=== PATIENT | male | born 1980 | race Caucasian/White ===

== ENCOUNTER 2023-12-18 10:39 | Day surgery (SDC) | payer OTHER ==
[2023-12-18 13:17] LABS: EPI CELLS 24 /uL (0-25.1); HYALINE CASTS 2 /uL (0-3.1); URINE APPEARANCE CLEAR; URINE BACTERIA 24 /uL (0-1359); URINE BILIRUBIN NEGATIVE (NEGATIVE); URINE COLOR YELLOW; URINE GLUCOSE (UA) NEGATIVE (NEGATIVE); URINE KETONE 3+ (NEGATIVE); URINE LEUK ESTERASE NEGATIVE (NEGATIVE); URINE NITRITE NEGATIVE (NEGATIVE); URINE PROTEIN 1+ (NEGATIVE); URINE UROBILINOGEN 0.2 mg/dL (0.2-1.0)
[2023-12-18] MEDS: ONDANSETRON 4 MG/2 ML VIAL IVPUSH ONE (13:59)
[2023-12-18] MEDS: LACTATED RINGERS SOLUTION 1000 ML INFUS.BAG IV ONE (13:59)
[2023-12-18] MEDS: ACETAMINOPHEN 1000 MG/100 ML BAG IVPB ONE (13:59)
[2023-12-18 14:05] LABS: URINE RBC 55.9 /uL (0-23.9); URINE WBC 143.1 /uL (0-25.8); YEAST NONE SEEN (NEGATIVE)
[2023-12-18 14:09] LABS: BASO % 0.5 % (0-2.0); HEMOGLOBIN 14.8 GM/dL (11.7-16.9); LYMPH % 16.1 % (8-40); MCH 28.2 pg (25.7-33.7); MCHC 33.6 g/dl (32.0-35.9); MEAN PLT VOLUME 7.8 fl (7.5-11.1); MONO % 7.1 % (3.8-10.2); NEUT % 76.3 % (42.8-82.8); PLATELET COUNT 240 10^3/uL (134-434); RBC 5.24 M/mm3 (4.00-5.60); RDW 13.3 % (11.9-15.9); WHITE BLOOD COUNT 13.6 K/mm3 (4.0-10.0)
[2023-12-18 14:10] LABS: INR 1.17 (0.83-1.09); PROTHROMBIN TIME (PATIENT) 13.5 SEC (9.7-13.0)
[2023-12-18 14:13] LABS: ACTIVATED PTT 38.6 SECONDS (25.2-36.5)
[2023-12-18 14:31] LABS: POTASSIUM 4.1 mmol/L (3.5-5.1)
[2023-12-18 14:36] LABS: CALCIUM 9.3 mg/dL (8.5-10.1); MAGNESIUM 2.6 mg/dL (1.8-2.4)
[2023-12-18 14:40] LABS: CREATININE 0.7 mg/dL (0.55-1.3)
[2023-12-18 14:41] LABS: BILIRUBIN,TOTAL 0.3 mg/dL (0.2-1); TOT PROT 7.2 g/dl (6.4-8.2)
[2023-12-18] MEDS ORDERED: morphine SULFATE 4 MG/ML VIAL ONE ×2 (14:51→17:23)
[2023-12-18] MEDS: morphine CARPU-JECT 4 MG/1 ML DISP.SYRIN IVPUSH ONE ×2 (14:58→17:44)
[2023-12-18 17:13] LABS: BLOOD UREA NITROGEN 22.6 mg/dL (7-18); CALCIUM 8.6 mg/dL (8.5-10.1); MAGNESIUM 2.5 mg/dL (1.8-2.4)
[2023-12-18 17:17] LABS: CREATININE 0.6 mg/dL (0.55-1.3)
[2023-12-18 17:23] LABS: POTASSIUM 3.5 mmol/L (3.5-5.1)
[2023-12-18] MEDS ORDERED: PIPERACILLIN/TAZOB 4.5 GM 4.5 GM/100 ML BAG IVPB ONE (17:23)
[2023-12-18] MEDS: PIPERACILLIN/TAZOB 4.5 GM 4.5 GM in DEXTROSE 5%-WATER 100 ML IVPB ONE (17:45)
[2023-12-18] MEDS ORDERED: CYCLOBENZAPRINE HCL 10 MG TABLET (FP) PO PRN (18:23)
[2023-12-18] MEDS: LACTATED RINGERS SOLUTION 1,000 ML/1,000 ML INFUS.BAG IV SCH (18:28)
[2023-12-18] MEDS: GABAPENTIN 300 MG CAPSULE PO SCH (21:45)
[2023-12-18] MEDS: morphine SULFATE 4 MG/ML VIAL IVPUSH PRN (21:46)
[2023-12-18 23:14] VITALS: BMI 23.3
[2023-12-18] MEDS: MELATONIN 5 MG TABLETS PO ONE (23:54)
[2023-12-19] MEDS: PIPERACILLIN/TAZOB 4.5 GM 4.5 GM in DEXTROSE 5%-WATER 100 ML IVPB SCH ×2 (02:28→14:19)
[2023-12-19] MEDS ORDERED: HEPARIN NA (PORCINE) 5,000 UNITS/ML 1ML VIAL ONE (08:09)
[2023-12-19] MEDS ORDERED: BUPIVACAINE HCL/PF 0.25% (2.5MG/ML) 10 ML VIAL ONE (08:09)
[2023-12-19] MEDS: BUPIVACAINE HCL/PF 0.25% (2.5MG/ML) 10 ML VIAL IJ ONE ×2 (08:18→09:13)
[2023-12-19] MEDS: cefOXitin SODIUM 1 GM VIAL (RESTRICTED TO ID) IVPB ONE (08:18)
[2023-12-19 08:21] LABS: HEMATOCRIT 37.1 % (35.4-49); MCH 29.2 pg (25.7-33.7); MCHC 35.1 g/dl (32.0-35.9); MEAN CELL VOLUME 83.4 fl (80-96); MEAN PLT VOLUME 7.8 fl (7.5-11.1); PLATELET COUNT 214 10^3/uL (134-434); RBC 4.45 M/mm3 (4.00-5.60); RDW 13.4 % (11.9-15.9); WHITE BLOOD COUNT 9.6 K/mm3 (4.0-10.0)
[2023-12-19 08:31] LABS: INR 1.22 (0.83-1.09); PROTHROMBIN TIME (PATIENT) 14.1 SEC (9.7-13.0)
[2023-12-19] MEDS ORDERED: SUCCINYLCHOLINE CHLORIDE 200 MG/10 ML SYRINGE ONE (08:43)
[2023-12-19] MEDS ORDERED: ROCURONIUM BROMIDE 50 MG/5 ML SYRINGE ONE (08:43)
[2023-12-19] MEDS ORDERED: MIDAZOLAM HCL 2 MG/2 ML SINGLE DOSE VIAL ONE (08:43)
[2023-12-19] MEDS ORDERED: PROPOFOL 40 ML ONE (08:43)
[2023-12-19] MEDS ORDERED: FENTANYL CITRATE/PF 50 MCG/ML VIAL ONE ×6 (08:43→10:44)
[2023-12-19 08:57] LABS: POTASSIUM 3.2 mmol/L (3.5-5.1)
[2023-12-19 09:00] LABS: CALCIUM 8.4 mg/dL (8.5-10.1)
[2023-12-19] MEDS: PIPERACILLIN/TAZOBACTAM 4.5 GM VIAL IVPB ONE (09:00)
[2023-12-19 09:01] LABS: BLOOD UREA NITROGEN 16.3 mg/dL (7-18); MAGNESIUM 2.2 mg/dL (1.8-2.4)
[2023-12-19 09:04] LABS: CREATININE 0.5 mg/dL (0.55-1.3); PHOSPHOROUS 3.7 mg/dL (2.5-4.9)
[2023-12-19] MEDS ORDERED: SUGAMMADEX SODIUM 200 MG/2 ML VIAL ONE (09:12)
[2023-12-19] MEDS ORDERED: PROMETHAZINE HCL 25 MG/1 ML VIAL IVPB PRN ×2 (10:00→10:17)
[2023-12-19] MEDS ORDERED: LACTATED RINGERS SOLUTION 1,000 ML/1,000 ML INFUS.BAG IV SCH (10:17)
[2023-12-19] MEDS ORDERED: CYCLOBENZAPRINE HCL 10 MG TABLET (FP) PO PRN (10:17)
[2023-12-19] MEDS: LACTATED RINGERS SOLUTION 1,000 ML/1,000 ML INFUS.BAG IV SCH (11:00)
[2023-12-19] MEDS ORDERED: HYDROmorphone HCl 2 MG/ML VIAL ONE (11:22)
[2023-12-19] MEDS: HYDROmorphone HCl 2 MG/ML VIAL IVPUSH PRN (11:25)
[2023-12-19 12:37] VITALS: RESP 18
[2023-12-19] MEDS ORDERED: oxyCODONE HCL 5 MG TABLET PO PRN (13:42)
[2023-12-19] MEDS: morphine SULFATE 4 MG/ML VIAL IVPUSH PRN (13:44)
[2023-12-19 14:09] VITALS: BP 118/75; PULSE 76; TEMP 98.4
[2023-12-19] MEDS: GABAPENTIN 300 MG CAPSULE PO SCH (15:04)
== END 2023-12-19 18:19 | disposition home or self-care (01) ==
LOC: JER 10:39 → JERBED 16:49 → UNDOADMOB 16:49 → JERBED 19:29 → J8W 19:41 → JERBED 19:41 → JASUSAT 12-19 11:25 → J8W 12-19 11:43 → JASUSAT 12-19 18:19
PROVIDERS: ATTEND Nurse Practitioner Acute Care
PROC: 0DTJ4ZZ Resection of Appendix, Percutaneous Endoscopic Approach (ICD-10-PCS; principal; 2023-12-19 13:00)
DX: K35.80 Unspecified acute appendicitis (principal)
CPT/HCPCS: 36415; 74177-TC; 80048; 80053; 81003; 83735; 84100; 85025; 85027; 85610; 85730; 86850; 86900; 86901; 87086; 88304-TC; 93005; 93010; 94010; 94760; 97116-GP; 97161-GP; 99285-25; J0131; J1644; Q9967

== ENCOUNTER 2024-03-10 09:35 | Inpatient (IN) | payer OTHER ==
[2024-03-10 09:42] VITALS: BMI 23.5
[2024-03-10] MEDS ORDERED: morphine SULFATE 4 MG/ML VIAL ONE (11:53)
[2024-03-10] MEDS ORDERED: MORPHINE SULFATE 2 MG/ML SYRINGE ONE (11:53)
[2024-03-10] MEDS ORDERED: ONDANSETRON 4 MG/2 ML VIAL ONE ×2 (11:54→13:13)
[2024-03-10] MEDS: LACTATED RINGERS SOLUTION 1000 ML INFUS.BAG IV ONE ×2 (12:03→13:20)
[2024-03-10] MEDS: morphine CARPU-JECT 4 MG/1 ML DISP.SYRIN IVPUSH ONE (12:03)
[2024-03-10] MEDS: ONDANSETRON 4 MG/2 ML VIAL IVPUSH ONE ×2 (12:05→13:20)
[2024-03-10 12:17] LABS: POTASSIUM 3.6 mmol/L (3.5-5.1)
[2024-03-10 12:20] LABS: ALBUMIN 4.5 g/dl (3.4-5.0); BLOOD UREA NITROGEN 14.9 mg/dL (7-18); CALCIUM 9.5 mg/dL (8.5-10.1); MAGNESIUM 2.1 mg/dL (1.8-2.4)
[2024-03-10 12:21] LABS: BASO % 0.5 % (0-2.0); EOS % 0.3 % (0-4.5); LYMPH % 15.3 % (8-40); MCH 28.8 pg (25.7-33.7); MCHC 34.2 g/dl (32.0-35.9); MEAN CELL VOLUME 84.1 fl (80-96); MEAN PLT VOLUME 7.8 fl (7.5-11.1); MONO % 4.5 % (3.8-10.2); NEUT % 79.4 % (42.8-82.8); PLATELET COUNT 252 10^3/uL (134-434); RBC 5.23 M/mm3 (4.00-5.60); RDW 14.7 % (11.9-15.9); WHITE BLOOD COUNT 9.9 K/mm3 (4.0-10.0)
[2024-03-10 12:23] LABS: CREATININE 0.8 mg/dL (0.55-1.3)
[2024-03-10 12:24] LABS: TOT PROT 7.6 g/dl (6.4-8.2)
[2024-03-10 12:25] LABS: BILIRUBIN,TOTAL 0.6 mg/dL (0.2-1)
[2024-03-10 12:30] LABS: INR 1.08 (0.83-1.09); PROTHROMBIN TIME (PATIENT) 12.4 SEC (9.7-13.0)
[2024-03-10 12:32] LABS: PH,URINE 6.5 (5.0-8.0); URINE APPEARANCE CLEAR; URINE BILIRUBIN NEGATIVE (NEGATIVE); URINE COLOR YELLOW; URINE GLUCOSE (UA) NEGATIVE (NEGATIVE); URINE KETONE 2+ (NEGATIVE); URINE LEUK ESTERASE NEGATIVE (NEGATIVE); URINE NITRITE NEGATIVE (NEGATIVE); URINE PROTEIN NEGATIVE (NEGATIVE); URINE UROBILINOGEN 0.2 mg/dL (0.2-1.0)
[2024-03-10 12:32] LABS: ACTIVATED PTT 49.7 SECONDS (25.2-36.5)
[2024-03-10] MEDS ORDERED: FUROSEMIDE 20 MG TABLET (FP) PO PRN (18:26)
[2024-03-10] MEDS ORDERED: METOCLOPRAMIDE HCL INJECTION 10 MG/2 ML VIAL ONE (18:31)
[2024-03-10] MEDS: SODIUM CHLORIDE 0.9% 500 ML INFUS.BAG IV ONE ×2 (18:40→19:35)
[2024-03-10] MEDS: METOCLOPRAMIDE HCL INJECTION 10 MG/2 ML VIAL IVPB ONE (18:41)
[2024-03-10] MEDS: ACETAMINOPHEN 1000 MG/100 ML BAG IVPB ONE (18:41)
[2024-03-10] MEDS: LACTATED RINGERS SOLUTION 1,000 ML/1,000 ML INFUS.BAG IV SCH (18:43)
[2024-03-10] MEDS ORDERED: KETOROLAC TROMETHAMINE 15 MG/ML VIAL ONE (20:04)
[2024-03-10] MEDS: KETOROLAC TROMETHAMINE 15 MG/ML VIAL IVPUSH PRN (20:12)
[2024-03-10] MEDS ORDERED: PATIENT'S OWN MEDICATION (NON-FORMULARY) (Gabapentin [Gabapentin] 600 MG Tablet) PO SCH (22:00)
[2024-03-10] MEDS ORDERED: HEPARIN NA (PORCINE) 5,000 UNITS/ML 1ML VIAL ONE (22:09)
[2024-03-10] MEDS ORDERED: GABAPENTIN 300 MG CAPSULE ONE (22:09)
[2024-03-10] MEDS: GABAPENTIN 300 MG CAPSULE PO SCH (22:28)
[2024-03-10] MEDS: HEPARIN NA (PORCINE) 5,000 UNITS/ML 1ML VIAL SQ SCH (22:28)
[2024-03-11] MEDS: ONDANSETRON 4 MG/2 ML VIAL IVPUSH PRN ×2 (03:00→21:00)
[2024-03-11] MEDS: ACETAMINOPHEN 1000 MG/100 ML BAG IVPB PRN (05:06)
[2024-03-11] MEDS ORDERED: AMITRIPTYLINE HCL 50 MG TABLET PO SCH (10:00)
[2024-03-11 10:27] LABS: BASO % 0.3 % (0-2.0); EOS % 0.1 % (0-4.5); HEMATOCRIT 37.8 % (35.4-49); HEMOGLOBIN 13.4 GM/dL (11.7-16.9); LYMPH % 16.3 % (8-40); MCH 29.4 pg (25.7-33.7); MCHC 35.5 g/dl (32.0-35.9); MEAN CELL VOLUME 82.8 fl (80-96); MEAN PLT VOLUME 7.7 fl (7.5-11.1); MONO % 5.9 % (3.8-10.2); NEUT % 77.4 % (42.8-82.8); PLATELET COUNT 226 10^3/uL (134-434); RBC 4.57 M/mm3 (4.00-5.60); RDW 14.4 % (11.9-15.9); WHITE BLOOD COUNT 9.5 K/mm3 (4.0-10.0)
[2024-03-11] MEDS: OXYBUTYNIN CHLORIDE 5 MG TABLET PO SCH (10:31)
[2024-03-11 10:43] LABS: POTASSIUM 3.3 mmol/L (3.5-5.1)
[2024-03-11 10:51] LABS: CALCIUM 8.5 mg/dL (8.5-10.1)
[2024-03-11 10:53] LABS: BLOOD UREA NITROGEN 17.9 mg/dL (7-18)
[2024-03-11 10:56] LABS: CREATININE 0.6 mg/dL (0.55-1.3)
[2024-03-11] MEDS ORDERED: methaDONE HCL 10 MG TABLET PO ONE (11:29)
[2024-03-11] MEDS: LACTATED RINGERS SOLUTION 1,000 ML/1,000 ML INFUS.BAG IV SCH (14:34)
[2024-03-11] MEDS: methaDONE HCL 10 MG TABLET PO ONE (16:08)
[2024-03-11] MEDS: AMITRIPTYLINE HCL 25 MG TABLET PO SCH (16:08)
[2024-03-11] MEDS: KCL 10 MEQ IVPB 10 MEQ/100 ML INFUS.BAG IVPB SCH (16:30)
[2024-03-12 00:02] LABS: COCAINE, UR NEGATIVE (NEGATIVE); METHADONE, UR NEGATIVE (NEGATIVE); OPIATES, URI POSITIVE (NEGATIVE); PHENCYCLIDINE,URINE NEGATIVE (NEGATIVE); URINE AMPHETAMINES NEGATIVE (NEGATIVE); URINE BARBITURATES NEGATIVE (NEGATIVE); URINE BENZODIAZEPINES NEGATIVE (NEGATIVE)
[2024-03-12 09:50] LABS: BASO % 0.3 % (0-2.0); EOS % 0.2 % (0-4.5); HEMATOCRIT 38.3 % (35.4-49); LYMPH % 20.2 % (8-40); MCH 28.7 pg (25.7-33.7); MCHC 33.9 g/dl (32.0-35.9); MEAN CELL VOLUME 84.5 fl (80-96); MEAN PLT VOLUME 8.4 fl (7.5-11.1); MONO % 7.7 % (3.8-10.2); NEUT % 71.6 % (42.8-82.8); PLATELET COUNT 217 10^3/uL (134-434); RBC 4.54 M/mm3 (4.00-5.60); RDW 13.8 % (11.9-15.9); WHITE BLOOD COUNT 10.6 K/mm3 (4.0-10.0)
[2024-03-12 10:00] LABS: POTASSIUM 3.4 mmol/L (3.5-5.1)
[2024-03-12 10:12] LABS: CALCIUM 8.2 mg/dL (8.5-10.1)
[2024-03-12 10:13] LABS: BILIRUBIN,TOTAL 0.5 mg/dL (0.2-1); BLOOD UREA NITROGEN 10.2 mg/dL (7-18); MAGNESIUM 2.1 mg/dL (1.8-2.4)
[2024-03-12 10:15] LABS: CREATININE 0.5 mg/dL (0.55-1.3); PHOSPHOROUS 2.4 mg/dL (2.5-4.9)
[2024-03-12 10:19] LABS: ALBUMIN 3.3 g/dl (3.4-5.0)
[2024-03-12] MEDS: oxyCODONE HCL 5 MG TABLET PO PRN (14:12)
[2024-03-12] MEDS ORDERED: cloNIDine HCL 0.1 MG TABLET PO PRN (14:13)
[2024-03-12] MEDS: traMADol HCL 50 MG TABLET PO PRN (21:22)
[2024-03-13] MEDS: ACETAMINOPHEN 325 MG TABLET (FP) PO PRN (00:53)
[2024-03-13 08:24] LABS: BASO % 0.5 % (0-2.0); EOS % 0.6 % (0-4.5); HEMOGLOBIN 13.6 GM/dL (11.7-16.9); LYMPH % 24.8 % (8-40); MCH 28.9 pg (25.7-33.7); MCHC 34.7 g/dl (32.0-35.9); MEAN CELL VOLUME 83.2 fl (80-96); MEAN PLT VOLUME 8.2 fl (7.5-11.1); MONO % 8.2 % (3.8-10.2); NEUT % 65.9 % (42.8-82.8); PLATELET COUNT 223 10^3/uL (134-434); RBC 4.69 M/mm3 (4.00-5.60); RDW 14.3 % (11.9-15.9); WHITE BLOOD COUNT 9.1 K/mm3 (4.0-10.0)
[2024-03-13 08:44] LABS: CALCIUM 8.7 mg/dL (8.5-10.1); MAGNESIUM 2.1 mg/dL (1.8-2.4)
[2024-03-13 08:45] LABS: ALBUMIN 3.5 g/dl (3.4-5.0)
[2024-03-13 08:47] LABS: CREATININE 0.6 mg/dL (0.55-1.3); PHOSPHOROUS 3.2 mg/dL (2.5-4.9)
[2024-03-13 08:49] LABS: BILIRUBIN,TOTAL 0.4 mg/dL (0.2-1); TOT PROT 6.1 g/dl (6.4-8.2)
[2024-03-13] MEDS: methaDONE HCL 10 MG TABLET PO ONE (10:58)
[2024-03-13] MEDS: PANTOPRAZOLE 40 MG TABLET PO SCH (22:09)
[2024-03-13] MEDS: POTASSIUM CHLORIDE ORAL LIQUID 20 MEQ/15 ML PO SCH (22:09)
[2024-03-14 09:43] LABS: POTASSIUM 3.3 mmol/L (3.5-5.1)
[2024-03-14 09:57] LABS: MAGNESIUM 2.5 mg/dL (1.8-2.4)
[2024-03-14 09:58] LABS: CREATININE 0.6 mg/dL (0.55-1.3); PHOSPHOROUS 3.2 mg/dL (2.5-4.9)
[2024-03-14 09:59] LABS: CALCIUM 8.6 mg/dL (8.5-10.1)
[2024-03-14] MEDS: POTASSIUM CHLORIDE ORAL LIQUID 20 MEQ/15 ML PO ONE (19:14)
[2024-03-14] MEDS: CYCLOBENZAPRINE HCL 10 MG TABLET (FP) PO PRN (22:25)
[2024-03-15 07:31] LABS: BASO % 0.9 % (0-2.0); EOS % 1.6 % (0-4.5); LYMPH % 31.2 % (8-40); MCH 28.7 pg (25.7-33.7); MCHC 34.3 g/dl (32.0-35.9); MEAN CELL VOLUME 83.8 fl (80-96); MEAN PLT VOLUME 8.1 fl (7.5-11.1); MONO % 6.8 % (3.8-10.2); NEUT % 59.5 % (42.8-82.8); PLATELET COUNT 226 10^3/uL (134-434); RBC 4.54 M/mm3 (4.00-5.60); RDW 14.4 % (11.9-15.9); WHITE BLOOD COUNT 8.7 K/mm3 (4.0-10.0)
[2024-03-15 07:45] LABS: POTASSIUM 3.3 mmol/L (3.5-5.1)
[2024-03-15 07:48] LABS: BLOOD UREA NITROGEN 8.2 mg/dL (7-18); CALCIUM 8.1 mg/dL (8.5-10.1)
[2024-03-15 07:50] LABS: MAGNESIUM 2.3 mg/dL (1.8-2.4)
[2024-03-15 07:51] LABS: ALBUMIN 3.3 g/dl (3.4-5.0); CREATININE 0.6 mg/dL (0.55-1.3); PHOSPHOROUS 4.2 mg/dL (2.5-4.9)
[2024-03-15 07:54] LABS: BILIRUBIN,TOTAL 0.3 mg/dL (0.2-1); TOT PROT 5.8 g/dl (6.4-8.2)
[2024-03-15] MEDS: methaDONE HCL 10 MG TABLET PO ONE (09:33)
[2024-03-15] MEDS: POTASSIUM CHLORIDE TABS 20 MEQ TABLET.ER (FP) PO ONE (17:52)
[2024-03-16 09:01] VITALS: RESP 18
[2024-03-16 14:53] VITALS: BP 115/77; PULSE 78; TEMP 98.6
== END 2024-03-16 17:49 | disposition home or self-care (01) | DRG 773 ==
LOC: JER 09:35 → JERBED 17:59 → OBSVTOIN 17:59 → J7W 03-11 00:04
PROVIDERS: ADMIT Internal Medicine; ATTEND Internal Medicine
DX: F11.23 Opioid dependence with withdrawal (principal); G89.4 Chronic pain syndrome; K52.9 Noninfective gastroenteritis and colitis, unspecified; M54.50 Low back pain, unspecified; M25.551 Pain in right hip; E87.6 Hypokalemia; M79.604 Pain in right leg; R10.31 Right lower quadrant pain; R11.2 Nausea with vomiting, unspecified; F17.210 Nicotine dependence, cigarettes, uncomplicated; N40.0 Benign prostatic hyperplasia without lower urinary tract symptoms
CPT/HCPCS: 0241U-QW; 36415; 71045-TC-FY; 71260-TC; 74177-TC; 76700-TC; 80048; 80053; 80307; 81003; 82977; 83690; 83735; 84075; 84100; 84484; 85025; 85610; 85730; 87086; 93005; 93010; 99285-25; J0131; J1644; Q9967

== ENCOUNTER 2024-05-08 15:51 | Emergency (ER) | payer OTHER ==
[2024-05-08 16:00] VITALS: BP 118/65; PULSE 93; RESP 18; TEMP 98.2; BMI 22.2
[2024-05-08 17:50] LABS: BASO % 0.7 % (0-2.0); HEMATOCRIT 41.4 % (35.4-49); HEMOGLOBIN 13.9 GM/dL (11.7-16.9); LYMPH % 26.5 % (8-40); MCH 28.5 pg (25.7-33.7); MCHC 33.6 g/dl (32.0-35.9); MEAN CELL VOLUME 84.8 fl (80-96); MEAN PLT VOLUME 7.4 fl (7.5-11.1); MONO % 6.8 % (3.8-10.2); PLATELET COUNT 244 10^3/uL (134-434); RBC 4.88 M/mm3 (4.00-5.60); RDW 14.9 % (11.9-15.9); WHITE BLOOD COUNT 8.4 K/mm3 (4.0-10.0)
[2024-05-08 18:31] LABS: POTASSIUM 4.5 mmol/L (3.5-5.1)
[2024-05-08 18:33] LABS: ALBUMIN 3.8 g/dl (3.4-5.0); BLOOD UREA NITROGEN 7.4 mg/dL (7-18); CALCIUM 9.1 mg/dL (8.5-10.1)
[2024-05-08 18:36] LABS: CREATININE 0.6 mg/dL (0.55-1.3)
[2024-05-08 18:38] LABS: BILIRUBIN,TOTAL 0.3 mg/dL (0.2-1); TOT PROT 6.8 g/dl (6.4-8.2)
[2024-05-09 00:55] LABS: HIV INTERPRETATION NEGATIVE (NEGATIVE)
== END 2024-05-08 20:25 | disposition home or self-care (01) ==
LOC: JER 15:51
DX: S09.90XA Unspecified injury of head, initial encounter (principal); R55 Syncope and collapse; H53.8 Other visual disturbances; W01.198A Fall on same level from slipping, tripping and stumbling with subsequent striking against other object, initial encounter
CPT/HCPCS: 36415; 70450-TC; 71045-TC-FY; 72125-TC; 80053; 84484; 85025; 86803; 87389; 93005; 93010; 99285-25